=== PATIENT | male | born 1990 | race Two or more races ===

== ENCOUNTER 2016-06-29 23:04 | Observation (INO) | payer OTHER ==
[~2016-06-29] VITALS: Ht 167.6 cm; Wt 77.2 kg
[2016-06-29 23:36] LABS: HEMATOCRIT 43.8 % (38.0-50.0); MCH 29.5 PG (29.0-34.0); MCHC 34.2 G/DL (30.0-36.0); MCV 86.2 FL (86-99); MEAN PLAT.VOLUME 11.5 uM^3 (9.0-12.4); PLATELET COUNT 319 K/uL (156-360); RBC DIS.WIDTH-CV 12.9 % (11.8-14.6); RBC DIS.WIDTH-SD 40.1 % (39-53); RED BLOOD COUNT 5.08 M/uL (4.00-5.50)
[2016-06-29 23:44] LABS: CHLORIDE 110 mEq/L (99-109); POTASSIUM 3.9 mEq/L (3.7-5.4); SODIUM 142 mEq/L (136-147)
[2016-06-29 23:47] LABS: GLUCOSE 77 mg/dL (70-99)
[2016-06-29 23:48] LABS: ANION GAP 14 MEQ/L (2-14)
[2016-06-29 23:49] LABS: D-DIMER ELISA < 0.15 mg/L FEU (< 0.57); INTER. NORMALIZED RATIO 1.1; PROTHROMBIN TIME 11.2 (9.2-11.2); PTT 28.9 (25-32); TOTAL BILIRUBIN 0.7 mg/dL (0.0-1.0)
[2016-06-29 23:50] LABS: ALKALINE PHOSPHATASE 76 IU/L (3-129); GFR ESTIMATE (CALCULATED) > 59 mL/min/
[2016-06-29 23:51] LABS: UREA NITROGEN (BUN) 21 mg/dL (9-23)
[2016-06-29 23:56] LABS: TROP-I INTERPRETATION NEGATIVE; TROPONIN-I < 0.01 ng/mL (0.0-0.30)
[2016-06-30 00:36] LABS: HDL CHOLESTEROL 35 MG/DL (Desirable>=40); LDL CHOLESTEROL 69 mg/dL (Desirable<100); NON-HDL CHOLESTEROL 128 mg/dL (Desirable<160); TOTAL CHOLESTEROL 163 mg/dL (Desirable<200); TRIGLYCERIDES 294 MG/DL (Normal: <150)
[2016-06-30 00:50] LABS: ADD MIUA? NO; BILIRUBIN NEGATIVE; BLOOD NEGATIVE; COLOR YELLOW ((YELLOW)); GLUCOSE (STRIP) NEGATIVE; KETONES NEGATIVE; LEUKOCYTES NEGATIVE; NITRITE NEGATIVE; PROTEIN (STRIP) NEGATIVE; SPECIFIC GRAVITY 1.039 (1.000-1.030); UCUL ADDED? NO; UROBILINOGEN 0.2 MG/DL (0.2-1.0)
[2016-06-30 04:41] LABS: TROP-I INTERPRETATION NEGATIVE; TROPONIN-I < 0.01 ng/mL (0.0-0.30)
[2016-06-30 07:04] LABS: HEMATOCRIT 40.1 % (38.0-50.0); MCH 29.4 PG (29.0-34.0); MCHC 33.9 G/DL (30.0-36.0); MCV 86.6 FL (86-99); RBC DIS.WIDTH-CV 13.1 % (11.8-14.6); RBC DIS.WIDTH-SD 41.1 % (39-53); RED BLOOD COUNT 4.63 M/uL (4.00-5.50); WHITE BLOOD COUNT 8.5 K/uL (4.1-10.2)
[2016-06-30 07:42] LABS: TROP-I INTERPRETATION NEGATIVE; TROPONIN-I 0.02 ng/mL (0.0-0.30)
[2016-06-30 07:51] LABS: ANION GAP 9 MEQ/L (2-14); CHLORIDE 111 MEQ/L (99-109); SAMPLE HEMOLYSIS CHECK 0; SAMPLE ICTERIC CHECK 0; SAMPLE LIPEMIA CHECK 0; SODIUM 143 MEQ/L (136-147)
[2016-06-30 07:57] LABS: GFR ESTIMATE (CALCULATED) > 59 mL/min/; GLUCOSE 92 mg/dL (70-99); UREA NITROGEN (BUN) 19 mg/dL (9-23)
[2016-06-30 09:23] LABS: HEMATOLOGY COMMENT 1 SMEAR COMPATIBLE; MEAN PLAT.VOLUME 11.4 uM^3 (9.0-12.4); PLATELET COUNT 275 K/uL (156-360)
[2016-06-30 13:52] LABS: TROP-I INTERPRETATION NEGATIVE; TROPONIN-I < 0.01 ng/mL (0.0-0.30)
[2016-06-30] MEDS ORDERED: ASPIR-LOW81 MG PO (17:45)
[2016-06-30] MEDS ORDERED: NITROSTAT0.4 MG SL (17:47)
[2016-06-30 18:22] VITALS: BP 106/65
== END 2016-06-30 18:20 | disposition home or self-care (01) ==
LOC: EME 23:04 → EDOF 06-30 01:32
PROVIDERS: Emergency Medicine; Hospitalist
DX: R07.89 Other chest pain (principal); R94.31 Abnormal electrocardiogram [ECG] [EKG]; R06.00 Dyspnea, unspecified; E78.5 Hyperlipidemia, unspecified
CPT/HCPCS: 71010; 71275; 76705; 80048; 80053; 80061; 80306 90; 81003; 83605; 84484; 85027; 85379; 85610; 85730; 86850; 86900; 86901; 93005; 93306; 99281; 99285; G0378; J2270; J2405; J7030

== ENCOUNTER 2017-12-02 23:04 | Emergency (ER) | payer OTHER ==
[~2017-12-02] VITALS: Ht 167.6 cm; Wt 79.4 kg
[~2017-12-02 23:04] MED LIST: ASPIR-LOW81 MG PO; NITROSTAT0.4 MG SL
[2017-12-03] MEDS ORDERED: FLEXERIL10 MG PO (01:20)
[2017-12-03] MEDS ORDERED: IBU600 MG PO (01:20)
[2017-12-03] MEDS ORDERED: PREDNISONE50 MG PO (01:20)
[2017-12-03 01:30] VITALS: BP 97/82
== END 2017-12-03 01:31 | disposition home or self-care (01) ==
LOC: EME 23:04
DX: M54.12 Radiculopathy, cervical region (principal)
CPT/HCPCS: 99281; 99284; J1885; J7512